=== PATIENT | male | born 1955 | race Caucasian/White ===

== ENCOUNTER 2021-01-27 09:30 | Outpatient (CLI) | payer BC, SELFPAY ==
--- NOTE | ~2021-01-27 | XR_ITS ---
EXAMINATION: XR chest 2V DATE: 01/27/2021 09:46 INDICATION: Cough. TECHNIQUE: Frontal and lateral views of the chest were obtained. COMPARISON: CT abdomen and pelvis 07/22/2017 FINDINGS: A calcified left lung nodule and calcified left hilar and mediastinal lymph nodes are consi stent with old granulomatous disease. No pleural effusion or pneumothorax. The heart size is normal. There is a compression fracture in lower thoracic spine, likely chronic. IMPRESSION: 1. No acute cardiopulmonary disease. Reviewed, dictated and finalized at location A.
== END 2021-01-27 09:31 | disposition home or self-care (01) ==
PROVIDERS: PCP Family Medicine; Visit Provider Physician Assistant
DX: R05 Cough (principal)
CPT/HCPCS: 71046

== ENCOUNTER → 2022-06-15 08:14 | Outpatient (CLI) | payer OTHER, SELFPAY ==
--- NOTE | ~2022-06-15 | XR_ITS ---
XR wrist RT w scaphoid DATE: 06/15/2022 08:34 INDICATION: Wrist pain. No injury. TECHNIQUE: 5 views COMPARISON: None FINDINGS: No fracture or dislocation, periosteal reaction or bone destruction.. No erosive change or chondrocalcinosis. IMPRESSION: Negative Reviewed, dictated and finalized at location B. IGHTENER AND ALIGNER IMPRESSION: Negative
--- NOTE | ~2022-06-15 | XR_ITS ---
XR finger 1st RT min 2V DATE: 06/15/2022 08:34 INDICATION: Right thumb pain. No injury. TECHNIQUE: 3 views COMPARISON: None FINDINGS: There is mild osteoarthritis at the first metacarpophalangeal joint No fracture or dislocation, periosteal reaction or bone destruction or radiopaque or body cutaneous e mphysema. 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 NSED PSYCHOLOGIST
--- NOTE | ~2022-06-15 | XR_ITS ---
XR hand RT 2V DATE: 06/15/2022 08:34 INDICATION: Wrist and thumb pain for 2 weeks. No injury. TECHNIQUE: AP and lateral views COMPARISON: None FINDINGS: No fracture, dislocation, periosteal reaction or bone destruction, erosive change or chondr ocalcinosis IMPRESSION: No significant abnormality Reviewed, dictated and finalized at location B. ECTOR [employer]RY NEGATIVE IMPRESSION: No significant abnormality
== END ==
PROVIDERS: PCP Family Medicine; Visit Provider Physician Assistant
DX: M25.539 Pain in unspecified wrist (principal); M79.646 Pain in unspecified finger(s); M18.11 Unilateral primary osteoarthritis of first carpometacarpal joint, right hand
CPT/HCPCS: 73110; 73120; 73140